=== PATIENT | male | born 1955 | race Caucasian/White ===

== ENCOUNTER → 2016-12-25 | Outpatient (CLI) | payer BC | LOC: COL.RAD 13:29 | DX: K76.0 Fatty (change of) liver, not elsewhere classified (principal); R16.0 Hepatomegaly, not elsewhere classified ==

== ENCOUNTER → 2017-01-03 | Outpatient (CLI) | payer BC | LOC: COL.RAD 09:01 | DX: R10.11 Right upper quadrant pain (principal) | CPT/HCPCS: A9537 ==